=== PATIENT | female | born 1960 | race Caucasian/White ===

== ENCOUNTER 2019-10-11 07:07 | Emergency (ER) | payer OTHER ==
[2019-10-11 07:18] VITALS: BP 163/91
[2019-10-11] MEDS ORDERED: OXYMETAZOLINE HCL 0.05% NASAL SPRAY 30 ML IEN ONE (07:20)
--- NOTE | 2019-10-11 07:26 | ED Physician Documentation ---
Epistaxis - HISTORIAN Historian: patient - HPI Stated Complaint: Epistasis Chief Complaint: Epistaxis (Sinus Infection) Additional Information: 58 year old female presents with c/o sinus pressure and congestion; woke up at 4:10 this morning with a nose bleed. She has been taking Benadryl at for allergies. She tried putting pressure "pinching" nose and tried cold compresses; bleeding appears to have subsided upon arrival. She has tissue in both nares; when removed there was no bleeding; however, nasal passages have noticeable blood and erythema. Onset: hours Timing: better Location: bilateral Severity: mild Associated Symptoms: denies: fever, chills - ROS MS/SKIN/LYMPH: denies: excessive bruising, bleeding from gums EYES/ENT: none GI/: denies: black stool, problems urinating CVS/RESP: denies: chest pain, difficulty breathing NEURO/PSYCH: denies: dizziness, anxiety, depression - PAST HX Past History: hypertension Other History: hypertension, other (GERD, Hypothyroid) Immunizations: UTD Allergies/Adverse Reactions: Allergies Allergy/AdvReac Type Severity Reaction Status Date / Time No Known Allergies Allergy Verified 10/11/19 07:18 Home Medications: Ambulatory Orders Medication Instructions Recorded Albuterol Sulfate [Albuterol 2 puff IH Q4 PRN #1 hfa.aer.ad 10/11/19 Sulfate Hfa] Amoxicillin/Potassium Clav 875 each PO BID #20 tablet 10/11/19 [Augmentin 875Mg/125Mg] Fluticasone Propionate [Flonase 1 spray NS BID #1 bottle 10/11/19 Nasal [place]] Folic Acid [Folvite] 1 tab PO DAILY 10/11/19 Hydroxychloroquine Sulfate 1 tab PO BID 10/11/19 [Plaquenil] Lansoprazole [Prevacid] 1 tab PO DAILY 10/11/19 Levothyroxine Sodium [Euthyrox] 1 tab PO DAILY 10/11/19 - SOCIAL HX Smoking History: less than 1 pack/day Alcohol Use: none Drug Use: none - FAMILY HX Family History: No - VITAL SIGNS Vital Signs: Vital Signs Temp Pulse Resp BP Pulse Ox 97.0 F L 102 H 16 163/91 95 10/11/19 07:07 10/11/19 07:07 10/11/19 07:07 10/11/19 07:07 10/11/19 07:07 - REVIEWED ASSESSMENTS Nursing Assessment Reviewed: Yes Vitals Reviewed: Yes ED Results Lab/Radiology - Orders Orders: ED Orders Category Date Time Status Oxymetazoline HCl 0.05% [Afrin 0.05%] Med 10/11/19 07:20 Once 2 spray IEN NOW ONE Epistaxis Physical Exam - EXAM General Appearance: no acute distress, alert Nose: nml inspection, mucosa nml, active bleeding (R), active bleeding (L), minimal Head/Neck: atraumatic Eyes/Ears: eyes nml inspection, PERRL Mouth: lips nml, gums nml, pharynx nml Neuro/Psych: oriented x3, neuro intact, mood/affect nml Respiratory: breath sounds normal CVS: heart sounds normal, equal pulses Abdomen: non-tender Skin: nml color, no skin rash Discharge Clincal Impression: Acute sinus infection, Epistaxis Prescriptions: Albuterol Sulfate [Albuterol Sulfate Hfa] 2 puff IH Q4 PRN #1 hfa.aer.ad PRN Reason: Shortness of breath/wheezing Amoxicillin/Potassium Clav [Augmentin 875Mg/125Mg] 875 each PO BID #20 tablet Fluticasone Propionate [Flonase Nasal [place]] 1 spray NS BID #1 bottle Referrals: Maritza Srinivasan FNP [Primary Care Provider] - 2 Days Additional Instructions: Use humidifier Use Flonase nasal spray twice a day Take antibiotic (Augmentin 875 mg by mouth twice a day until gone) Follow up with PCP next for re-evaluation Condition: Good Disposition: 01 HOME, SELF-CARE Decision to Admit: NO Decision Time: 07:38
== END 2019-10-11 07:36 | disposition home or self-care (01) ==
LOC: ED 07:07
DX: J01.90 Acute sinusitis, unspecified (principal); R04.0 Epistaxis